=== PATIENT | male | born 1995 | race Caucasian/White ===

== ENCOUNTER 2019-03-06 22:45 | Emergency (ER) | payer OTHER ==
[2019-03-06] MEDS ORDERED: ACETAMINOPHEN 500 MG TAB PO ONE (23:27)
[2019-03-06] MEDS ORDERED: IBUPROFEN 800 MG TAB PO ONE ×2 (23:27)
[2019-03-06] MEDS ORDERED: ACETAMINOPHEN 500 MG TAB ONE (23:28)
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
[2019-03-07 00:25] VITALS: BP 145/70
== END 2019-03-07 00:24 | disposition home or self-care (01) ==
DX: S02.2XXA Fracture of nasal bones, initial encounter for closed fracture (principal); R51 Headache; Y04.8XXA Assault by other bodily force, initial encounter; Y93.01 Activity, walking, marching and hiking; Y92.410 Unspecified street and highway as the place of occurrence of the external cause